=== PATIENT | female | born 1970 | race Caucasian/White ===

== ENCOUNTER 2020-06-02 07:00 | Day surgery (SDC) | payer BC ==
[~2020-06-02 07:00] MED LIST: Lactated Ringers 1,000 ML IV SCH; Lidocaine 1%/Sod Bicarbonate in NS 8.4% 1 ML Syringe IDERM PRN; Sodium Chloride 0.9% 10 ML Syringe FLUSH PRN
[2020-06-02] MEDS ORDERED: Midazolam 1 MG/ML 2 ML SDV ONE (07:03)
[2020-06-02] MEDS ORDERED: Propofol 200 MG/20 ML SDV ONE ×2 (07:03→09:05)
[2020-06-02] MEDS ORDERED: fentaNYL 100 MCG/2 ML SDV ONE (07:03)
[2020-06-02] MEDS ORDERED: Lidocaine 1% 6 ML ONE (07:06)
[2020-06-02] MEDS ORDERED: Bupivacaine 0.5% 10 ML SDV ONE ×2 (07:08→12:25)
[2020-06-02] MEDS ORDERED: Bupivacaine 0.5% 30 ML SDV ONE (07:22)
[2020-06-02] MEDS ORDERED: Lidocaine 1% 30 ML SDV ONE (07:22)
[2020-06-02] MEDS ORDERED: ceFAZolin 1 GM Vial ONE (08:12)
--- NOTE | 2020-06-02 08:35 | PCM.PREANE ---
Preanesthetic Assessment - Procedure Proposed Procedure: Left bunionectomy - Anesthesia/Transfusion/Family Hx Anesthesia History: Prior Anesthesia Without Reaction - Review of Systems General: No Symptoms Pulmonary: No Symptoms Cardiovascular: No Symptoms Gastrointestinal: No Symptoms Neurological: No Symptoms Other: Reports: Depression - Physical Assessment NPO Status Date: 06/01/20 NPO Status Time: 19:00 Vital Signs: Last Vital Signs Temp 97.6 F 06/02/20 07:00 Pulse 72 06/02/20 07:00 Resp 13 06/02/20 08:00 BP 122/73 06/02/20 08:00 Pulse Ox 99 06/02/20 08:00 Height: 1.52 m Weight: 106.594 kg ASA Class: 2 Mental Status: Alert & Oriented x3 Airway Class: Mallampati = 3 Dentition: Reports: Normal Dentition Thyro-Mental Finger Breadths: 3 Mouth Opening Finger Breadths: 3 ROM/Head Extension: Full Lungs: Clear to Auscultation, Normal Respiratory Effort Cardiovascular: Regular Rate, Regular Rhythm - Allergies Allergies/Adverse Reactions: Allergies Allergy/AdvReac Type Severity Reaction Status Date / Time No Known Allergies Allergy Verified 06/02/20 07:18 - Acknowledgements Anesthesia Type Planned: Regional Block (for postoperative pain coverage), MAC Pt an Appropriate Candidate for the Planned Anesthesia: Yes Alternatives and Risks of Anesthesia Discussed w Pt/Guardian: Yes Pt/Guardian Understands and Agrees with Anesthesia Plan: Yes PreAnesthesia Questionnaire HEENT History: Reports: Other (See Below) Other HEENT History: tonsillitis Cardiovascular History: Reports: None Respiratory History: Reports: None Gastrointestinal History: Reports: None Genitourinary History: Reports: None 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: Musculoskeletal History: Reports: Other (See Below) Other Musculoskeletal History: bunion to left great toe Neurological History: Reports: None Psychiatric History: Reports: ADD, Depression Endocrine/Metabolic History: Reports: Obesity/BMI 30+ Hematologic History: Reports: None Immunologic History: Reports: None Oncologic (Cancer) History: Reports: None Dermatologic History: Reports: None - Infectious Disease History Infectious Disease History: Reports: None - Past Surgical History Head Surgeries/Procedures: Reports: None HEENT Surgical History: Reports: None Cardiovascular Surgical History: Reports: None Respiratory Surgical History: Reports: None GI Surgical History: Reports: None Female Surgical History: Reports: Section Male Surgical History: Reports: None Endocrine Surgical History: Reports: None Neurological Surgical History: Reports: None Musculoskeletal Surgical History: Reports: None Oncologic Surgical History: Reports: None Dermatological Surgical History: Reports: None - SUBSTANCE USE Smoking Status *Q: Never Smoker Recreational Drug Use History: No - HOME MEDS Home Medications: Home Meds FLUoxetine HCl [Prozac] 20 mg PO DAILY 06/01/20 [History] Methylphenidate HCl [Concerta] 72 mg PO DAILY 06/01/20 [History] - CURRENT (IN HOUSE) MEDS Current Meds: Current Medications Lactated Ringer's (Ringers, Lactated) 1,000 mls @ 125 mls/hr IV ASDIRECTED MONO Stop: 06/02/20 23:00 Last Admin: 06/02/20 07:24 Dose: 125 mls/hr Documented by: Lidocaine/Sodium Bicarbonate (Buffered Lidocaine 1% In Ns 8.4%) 0.25 ml IDERM ONETIME PRN PRN Reason: Prior to IV Start Stop: 06/02/20 18:00 Last Admin: 06/02/20 07:24 Dose: 0.25 ml Documented by: Sodium Chloride (Saline Flush) 10 ml FLUSH ASDIRECTED PRN PRN Reason: Keep Vein Open Stop: 06/02/20 18:00 Discontinued Medications Bupivacaine HCl (Sensorcaine-Mpf 0.5%) Confirm Administered Dose 10 ml .ROUTE .STK-MED ONE Stop: 06/02/20 07:09 Bupivacaine HCl (Marcaine 0.5%) Confirm Administered Dose 30 ml .ROUTE .STK-MED ONE Stop: 06/02/20 07:23 Cefazolin Sodium (Ancef) Confirm Administered Dose 2 gm .ROUTE .STK-MED ONE Stop: 06/02/20 08:13 Fentanyl (Sublimaze) Confirm Administered Dose 100 mcg .ROUTE .STK-MED ONE Stop: 06/02/20 07:04 Lidocaine HCl (Xylocaine-Mpf 1%) Confirm Administered Dose 6 mls @ as directed .ROUTE .STK-MED ONE Stop: 06/02/20 07:07 Lidocaine HCl (Xylocaine-Mpf 1%) Confirm Administered Dose 30 ml .ROUTE .STK-MED ONE Stop: 06/02/20 07:23 Midazolam HCl (Versed 1 Mg/Ml) Confirm Administered Dose 4 mg .ROUTE .STK-MED ONE Stop: 06/02/20 07:04 Propofol (Diprivan 20 Ml) Confirm Administered Dose 600 mg .ROUTE .STK-MED ONE Stop: 06/02/20 07:04
[2020-06-02] MEDS ORDERED: Lactated Ringers 1,000 ML ONE (09:09)
--- NOTE | 2020-06-02 09:13 | PCM.PRNOTE ---
- Free Text/Narrative Note: Postoperative pain control requested by the surgeon Requested by Dr. Ar Franklin. Dx: Left Hallux valgus. Surgical Procedure : Left bunionectomy with osteotomy and internal screw fixation Preoperative Treatment: Lt ankle block preoperatively. Patient received explanation about an ankle block, benefits and risks discussed, consent signed. Patient in preoperative area, monitors on, oxygen 2L via nasal cannula, semi-Fry position, left foot supported by folded blankets a elevated position. Time out done. Left fool cleaned with Chloraprep stick and allowed to dry. 4 mg of Midazolam given in incremental doses. Ultrasound small linear probe used to facilitate identification of the structures. 1st Injection performed behind medial malleolus at tibial nerve in fanning fashion behind posterior tibial artery with negative aspiration confirmed . 2nd injection between extensor hallucis longus and tibialis anterior muscles at deep peroneal nerve , next to anterior tibial artery with negative aspiration confirmed. 3rd injection above fibular edge between extensor digitorum and peroneus brevis muscles in proximity of superficial peroneal nerv . 4th injection at the medial surface of the foot next to greater saphenous vein above the tibial edge adjacent to flexor digitorum muscle at saphenous nerve proximity. Total amount of local anesthetic used: 14 mls of 0.5% PF Bupivacaine Patient has tolerated the procedure well. No signs of local anesthetic systemic toxicity noted Please see attaches U/S images. Times: Start 07:43 End: 07:56 Tom Frank CRNA
[2020-06-02] MEDS ORDERED: HYDROmorphone 0.5 MG/0.5 ML Syringe IVPUSH PRN (09:30)
[2020-06-02] MEDS ORDERED: fentaNYL 100 MCG/2 ML SDV IVPUSH PRN (09:30)
--- NOTE | 2020-06-02 09:37 | PCM.OPNOTE ---
- General Post-Op/Procedure Note Date of Surgery/Procedure: 06/02/20 Operative Procedure(s): Bunionectomy with Osteotomy and internal fixation, LEFT 1st MTPJ Anesthesia Technique: Local, MAC Primary Surgeon: Ar Franklin II Anesthesia Provider: Becky Santos EBL in mLs: 10 Drain/Tube Comments:: none Complications: None Condition: Good Free Text/Narrative:: Patient left the OR for recovery wit her vital signs stable & vascular status intact, to digits 1-5 LEFT foot.
--- NOTE | 2020-06-02 09:41 | CR ---
Left foot: 4 fluoroscopic spot views left foot were obtained utilizing C-arm device. Comparison: No prior left foot imaging is available. Study shows correction of bunion deformity within the left first toe. Final 2 films shows [address] across the osteotomy. Metatarsal shaving is also noted. Fluoroscopy time is given as 4.6 seconds. Impression: 1. Procedural study as described above. Diagnostic code #2 This report was dictated in MDT
--- NOTE | 2020-06-02 09:54 | PCM48HPAN ---
Post Anesthesia Note - EVALUATION WITHIN 48HRS OF ANESTHETIC Vital Signs in Normal Range: Yes Patient Participated in Evaluation: Yes Respiratory Function Stable: Yes Airway Patent: Yes Cardiovascular Function Stable: Yes Hydration Status Stable: Yes Pain Control Satisfactory: Yes Nausea and Vomiting Control Satisfactory: Yes Mental Status Recovered: Yes Vital Signs: Last Vital Signs Temp 97.1 F 06/02/20 09:34 Pulse 77 06/02/20 09:34 Resp 16 06/02/20 09:34 BP 141/83 H 06/02/20 09:34 Pulse Ox 97 06/02/20 09:34 - COMMENTS/OBSERVATIONS Free Text/Narrative:: No anesthesia complications noted.
--- NOTE | 2020-06-05 10:16 | OR ---
DATE OF OPERATION: 06/02/2020 SURGEON: Ar Franklin II, DPM LOCATION: [facility]. ANESTHESIA: MAC with local block about the left foot. ANESTHESIA PROVIDER: Tom Frank CRNA HEMOSTASIS: Left pneumatic ankle tourniquet at 250 mmHg pressure x55 minutes. PREOPERATIVE DIAGNOSIS: Painful symptomatic hallux abductovalgus bunion deformity, left first metatarsophalangeal joint. POSTOPERATIVE DIAGNOSIS: Painful symptomatic hallux abductovalgus bunion deformity, left first metatarsophalangeal joint. OPERATION PERFORMED: Bunionectomy with osteotomy and internal screw fixation. DESCRIPTION OF PROCEDURE: Upon arrival on admission to the hospital, the patient was examined and cleared for surgery by the assigned anesthesia provider. IV access was obtained in the preoperative area after which prophylactic antibiotics were given consisting of 2 g of Ancef IV piggyback. The patient was then brought to the OR via gurney and left on the operating room table and then assisted with transfer onto the operating room table in the supine position. The patient was given combination of sedations and was adequately sedated before receiving 10 mL of 1:1 mixture of 1% lidocaine plain and 0.5% Marcaine plain in the form of local infiltrative block about the operatory site of the left first ray. Prior to this, the patient had received 15 mL of 0.5% Marcaine plain and 5 mL of 2% lidocaine plain that were injected in the form of a local ankle block of the left foot. The left lower extremity was then wrapped with cotton Webril padding in preparation for nonsterile pneumatic ankle tourniquet, which was then draped with a sterile drape. Left lower extremity was then prepped and draped in the usual aseptic manner. Left lower extremity was then elevated and exsanguinated with the use of an Esmarch bandage before inflating the pneumatic ankle tourniquet to 250 mmHg pressure. Esmarch bandage was removed, and the left lower extremity was then placed back to the level of the operating room table. Attention was then directed over the dorsal medial aspect of the left first metatarsophalangeal joint where an approximately 6 cm curvilinear incision was created medial to the extensor hallucis longus tendon. This was a controlled depth skin incision taken down to the level of subcutaneous structures to cauterize and ligate all superficial bleeders as deemed necessary. Continuous soft tissue dissection was then taken down to the capsular structures where a linear capsulotomy was performed being parallel to that of the skin. This brought into exposure the medial eminence of the first metatarsal head, which was then resected with a power sagittal saw. The wound was then copiously lavaged with sterile saline solution, and a modified Hohmann osteotomy was then created being 0.5 cm at the dorsal aspect to the distal articulating cartilage and from dorsal distal to plantar proximal was created. This allowed the capital fragment to be plantar flexed, and the osteotomy was cut perpendicular to the longitudinal axis of the first metatarsal and in an attitude going towards the deformity. A bone clamp was then utilized to secure the osteotomy in its corrected position while K- wires to the cannulated headless 3.0 screw system were located and were driven across the osteotomy in a perpendicular fashion. The length of the traversed depth was measured at 24 mm and 16 mm respectively. These K-wires were then overdrilled with a cannulated 2.0 drill and then the near cortex was overdrilled with a 3.0 mm drill. The 16 mm and 24 mm screws were respectively drawn and advanced across the osteotomy site to 2-point finger tightness and good compression and when they had been adequately countersunk. The wound was once again copiously lavaged with sterile saline solution, and deep capsular closure was undertaken with 3-0 Vicryl while the skin or the subcuticular layer was reapproximated with 4-0 Vicryl, and the skin was reapproximated with 4-0 nylon. Intraoperative fluoroscopy x-ray views were obtained during the placement of the screws and afterwards. An additional 10 mL of 0.5% Marcaine plain was then injected about the operatory site, and dressings would then consist of Betadine- soaked Adaptic gauze, 4x4 gauze, Jael, and Regis bandage. Upon completion of the surgery, the left pneumatic ankle tourniquet was deflated, and it was noted that digits 1 through 5 of the left lower extremity became pink indicating normal vascular perfusion had returned. The patient appeared to tolerate the procedure and anesthesia well and left the OR for recovery with her vital signs being stable and vascular status intact digits 1 through 5 of the left lower extremity. There were no apparent complications. In recovery, the patient received written and oral postop instructions as well as postoperative pain medication. The patient will ambulate partial weightbearing about her left foot and ankle with the use of an immobilization boot that was provided for her in the postoperative anesthesia care unit for her left foot and ankle. Estimated blood loss for this procedure was less than 10 mL and considered negligible. There were no apparent or obvious complications. ESTIMATED BLOOD LOSS: MMODAL /[id number]
== END 2020-06-02 11:10 | disposition home or self-care (01) ==
LOC: JD.SDS 07:00
PROVIDERS: ATTEND Podiatrist Foot & Ankle Surgery
DX: M21.612 Bunion of left foot (principal); M20.12 Hallux valgus (acquired), left foot; F32.9 Major depressive disorder, single episode, unspecified; E66.9 Obesity, unspecified; Z79.899 Other long term (current) drug therapy; Z68.42 Body mass index [BMI] 45.0-49.9, adult
CPT/HCPCS: 28296; 76000; C1769; J0690; J2001; J2250; J2704; J3010; J3490; J7120; 01480; 64450; C1713